=== PATIENT | male | born 1975 | race Caucasian/White ===

== ENCOUNTER 2022-09-08 06:55 | Outpatient (CLI) | payer BC, SELFPAY ==
--- NOTE | 2022-09-08 07:12 | MR_ITS ---
WS: [id number] MRI LEFT SHOULDER HISTORY: LEFT SHOULDER PAIN COMPARISON: None available. TECHNIQUE: Multiplanar sequences of the shoulder joint are submitted. Very mild AC joint narrowing. Mild subacromial impingement upon the supraspinatus. No significant sub acromial or subdeltoid bursal fluid. No os acromion. Normal biceps tendon in the bicipital groove. Very slightly high riding humeral head. No fractures or marrow edema. No rotator cuff tears. There is mild increased signal in the distal subscapularis tendon. No muscle atrophy or edema. Intrasubstance degeneration within the labrum. No definite labral tear is identified. MR/MR shoulder LT wo con* [id number] IMPRESSION: 1. Mild AC joint arthritis. 2. Moderate subacromial impingement upon the supraspinatus tendon. 3. No rotator cuff tear. 4. Moderate intrasubstance degenerative changes throughout the labrum. No defi nite tears are identified. 5. Mild tendinopathy distal subscapularis tendon.
== END 2022-09-08 06:56 | disposition home or self-care (01) ==
PROVIDERS: PCP Family Medicine; Visit Provider Nurse Practitioner Family
DX: M25.512 Pain in left shoulder (principal); M19.012 Primary osteoarthritis, left shoulder; M25.812 Other specified joint disorders, left shoulder; M67.912 Unspecified disorder of synovium and tendon, left shoulder
CPT/HCPCS: 73221